=== PATIENT | male | born 1970 | race Caucasian/White ===

== ENCOUNTER 2017-06-16 10:16 | Emergency (ER) | payer OTHER ==
[2017-06-16 10:26] VITALS: RESP 18
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
[2017-06-16 14:15] VITALS: BP 140/87; PULSE 71; TEMP 97.9; O2SAT 97
== END 2017-06-16 14:15 | disposition home or self-care (01) ==
DX: S42.034A Nondisplaced fracture of lateral end of right clavicle, initial encounter for closed fracture (principal); S09.90XA Unspecified injury of head, initial encounter; V18.0XXA Pedal cycle driver injured in noncollision transport accident in nontraffic accident, initial encounter; Y99.8 Other external cause status; Y93.55 Activity, bike riding
CPT/HCPCS: A4565

== ENCOUNTER 2017-11-30 17:14 | Emergency (ER) | payer OTHER ==
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
--- NOTE | 2017-11-30 17:29 | CPEKG ---
Heart Rate: 65 RR Interval: 923 P-R Interval: 180 QRSD Interval: 90 QT Interval: 416 QTC Interval: 433 P Southside: 27 QRS Southside: 74 T Wave Southside: 53 EKG Severity - NORMAL ECG - EKG Impression: SINUS RHYTHM Electronically Signed By: Wale Jeffries 30-Nov-2017 17:36:09
[2017-11-30 17:48] LABS: PLATELET COUNT 200 10^3/uL (150-400)
[2017-11-30 18:31] VITALS: BP 108/95
== END 2017-11-30 18:31 | disposition home or self-care (01) ==
DX: R07.9 Chest pain, unspecified (principal)
CPT/HCPCS: 84484-PO

== ENCOUNTER 2018-01-22 21:44 | Emergency (ER) | payer OTHER ==
[2018-01-22 21:53] VITALS: BP 162/98
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
== END 2018-01-22 22:30 | disposition home or self-care (01) ==
DX: L85.3 Xerosis cutis (principal)